=== PATIENT | female | born 1995 | race Caucasian/White ===

== ENCOUNTER 2018-04-26 17:21 | Emergency (ER) | payer MEDICAID ==
[~2018-04-26] VITALS: Ht 154.9 cm; Wt 54.4 kg
[~2018-04-26 17:21] MED LIST: IBUP-1223 PO; OXYC-302 PO; PREN1TAB52 PO; SENN-92 PO
[2018-04-26 18:30] LABS: BASOPHILS # (AUTO) 0.03 x10^3/uL (0-0.1); BASOPHILS % (AUTO) 1 % (0-1); EOSINOPHILS # (AUTO) 0.05 x10^3/uL (0-0.4); EOSINOPHILS % (AUTO) 1 % (1-7); LYMPHOCYTES # (AUTO) 1.97 x10^3/uL (1-3.4); LYMPHOCYTES % (AUTO) 31 % (22-44); MD NO; MEAN CORPUSCULAR HEMOGLOBIN 24.6 pg (27.0-34.8); MEAN CORPUSCULAR HGB CONC 32.6 g/dL (32.4-35.8); MEAN CORPUSCULAR VOLUME 75.5 fL (80-100); MEAN PLATELET VOLUME 7.2 fL (7.4-10.4); MONOCYTES # (AUTO) 0.44 x10^3/uL (0.2-0.8); MONOCYTES % (AUTO) 7 % (2-9); NEUTROPHILS # (AUTO) 3.95 x10^3/uL (1.8-6.8); NEUTROPHILS % (AUTO) 61 % (42-75); PLATELET COUNT 445 x10^3/uL (130-400); RED BLOOD COUNT 4.44 x10^6/uL (3.82-5.3); RED CELL DISTRIBUTION WIDTH 19.8 % (9.6-15.2)
[2018-04-26 18:42] LABS: ALANINE AMINOTRANSFERASE 14 U/L (12-78); ALBUMIN 3.4 g/dL (3.4-5.0); ANION GAP 9 mmol/L (5-15); CALCIUM 8.5 mg/dL (8.5-10.1); CHLORIDE 107 mmol/L (98-107); CREATININE 0.62 mg/dL (0.55-1.02)
[2018-04-26 18:59] LABS: ALKALINE PHOSPHATASE 32 U/L (45-117); BILIRUBIN,TOTAL 0.3 mg/dL (0.2-1.0)
[2018-04-26 19:20] VITALS: BP 94/52
[2018-04-26 19:45] LABS: MICROSCOPIC INDICATED
[2018-04-26 20:03] LABS: CULTURE INDICATED? NO
== END 2018-04-26 20:35 | disposition home or self-care (01) ==
LOC: ED 20:05
DX: O26.891 Other specified pregnancy related conditions, first trimester (principal); R10.2 Pelvic and perineal pain; Z3A.01 Less than 8 weeks gestation of pregnancy; O99.331 Smoking (tobacco) complicating pregnancy, first trimester
CPT/HCPCS: 36415; 76830; 80053; 81001; 84702; 85025; 86901; 99285

== ENCOUNTER 2018-10-01 21:39 | Observation (INO) | payer MEDICAID ==
[~2018-10-01] VITALS: Ht 154.9 cm; Wt 57.7 kg
[2018-10-01 22:15] VITALS: BP 109/55
[2018-10-01 22:22] LABS: AMPHETAMINE SCREEN, URINE Negative (Negative); BARBITURATE SCREEN, URINE Negative (Negative); BENZODIAZEPINE SCREEN, URINE Negative (Negative); CANNABINOID SCREEN, URINE Positive (Negative); COCAINE SCREEN, URINE Negative (Negative); METHADONE SCREEN, URINE Negative (Negative); OPIATE SCREEN, URINE Negative (Negative)
[2018-10-01 22:23] LABS: MICROSCOPIC INDICATED
[2018-10-01] MEDS ORDERED: TERBUTALINE 1 MG/ML, 1ML SQ ONE (23:00)
[2018-10-01] MEDS ORDERED: D5%-LACTATED RINGERS 1,000 ML IV SCH (23:00)
[2018-10-01] MEDS ORDERED: TERBUTALINE 1 MG/ML, 1ML ONE (23:05)
[2018-10-02 00:53] LABS: MICROSCOPIC INDICATED
[2018-10-02] MEDS ORDERED: D5%-LACTATED RINGERS 1,000 ML IV SCH (22:00)
== END 2018-10-02 01:25 | disposition home or self-care (01) ==
LOC: LDOP 21:39 → LDIP 23:30
PROVIDERS: ADMIT Obstetrics & Gynecology; ATTEND Obstetrics & Gynecology
DX: O32.1XX0 Maternal care for breech presentation, not applicable or unspecified (principal); O26.893 Other specified pregnancy related conditions, third trimester; R10.9 Unspecified abdominal pain; Z87.891 Personal history of nicotine dependence; Z3A.28 28 weeks gestation of pregnancy; Z79.899 Other long term (current) drug therapy
CPT/HCPCS: 59025; 76815; 80307; 81001; 87086; 96372; G0378; J3105; J7121; 96360

== ENCOUNTER 2018-11-21 12:10 | Outpatient (CLI) | payer MEDICAID ==
[~2018-11-21] VITALS: Ht 154.9 cm; Wt 59.0 kg
[2018-11-21 13:41] LABS: MICROSCOPIC INDICATED
[2018-11-21 13:45] LABS: AMPHETAMINE SCREEN, URINE Negative (Negative); BARBITURATE SCREEN, URINE Negative (Negative); BENZODIAZEPINE SCREEN, URINE Negative (Negative); CANNABINOID SCREEN, URINE Positive (Negative); COCAINE SCREEN, URINE Negative (Negative); METHADONE SCREEN, URINE Negative (Negative); OPIATE SCREEN, URINE Negative (Negative)
== END 2018-11-21 15:07 | disposition home or self-care (01) ==
LOC: LDOP 12:10
PROVIDERS: ATTEND Obstetrics & Gynecology
DX: O26.893 Other specified pregnancy related conditions, third trimester (principal); R10.9 Unspecified abdominal pain; Z3A.37 37 weeks gestation of pregnancy
CPT/HCPCS: 59025; 80307; 81001; 87086; 99211; G0463

== ENCOUNTER 2018-12-05 05:12 | Inpatient (IN) | payer MEDICAID ==
[~2018-12-05] VITALS: Ht 154.9 cm; Wt 64.5 kg
[2018-12-05] MEDS ORDERED: OXYTOCIN 30U/ 0.9% NaCL 500ML 500 ML IV PRN (05:14)
[2018-12-05] MEDS ORDERED: OXYTOCIN 30U/ 0.9% NaCL 500ML 500 ML IV ONE (05:14)
[2018-12-05] MEDS ORDERED: LIDOCAINE 1%, 20ML ONE (05:16)
[2018-12-05] MEDS ORDERED: NEWBORN KIT ONE (05:16)
[2018-12-05] MEDS ORDERED: MISOPROSTOL 200 MCG TABLET ONE (05:16)
[2018-12-05] MEDS ORDERED: OXYTOCIN 30U/ 0.9% NaCL 500ML 500 ML ONE (05:16)
[2018-12-05] MEDS ORDERED: TERBUTALINE 1 MG/ML, 1ML IVPush PRN (05:30)
[2018-12-05] MEDS ORDERED: ONDANSETRON 2MG/ML, 2ML IVPush PRN (05:30)
[2018-12-05] MEDS ORDERED: ALUMINUM/MAG/SIMETHICONE 30 ML UDC PO PRN (05:30)
[2018-12-05] MEDS ORDERED: FENTANYL PF 100 MCG/2ML IV PRN (05:30)
[2018-12-05 05:54] LABS: BASOPHILS # (AUTO) 0.04 x10^3/uL (0-0.1); BASOPHILS % (AUTO) 0 % (0-1); EOSINOPHILS % (AUTO) 2 % (1-7); LYMPHOCYTES % (AUTO) 23 % (22-44); MD NO; MEAN CORPUSCULAR HEMOGLOBIN 24.4 pg (27.0-34.8); MEAN CORPUSCULAR HGB CONC 32.7 g/dL (32.4-35.8); MEAN CORPUSCULAR VOLUME 74.5 fL (80-100); MEAN PLATELET VOLUME 7.6 fL (7.4-10.4); MONOCYTES # (AUTO) 0.55 x10^3/uL (0.2-0.8); MONOCYTES % (AUTO) 6 % (2-9); NEUTROPHILS % (AUTO) 68 % (42-75); PLATELET COUNT 410 x10^3/uL (130-400); RED BLOOD COUNT 4.49 x10^6/uL (3.82-5.3); RED CELL DISTRIBUTION WIDTH 18.7 % (9.6-15.2)
[2018-12-05] MEDS: LACTATED RINGERS 1,000 ML IV SCH ×3 (06:15→19:26)
[2018-12-05 06:33] VITALS: BP 119/85
[2018-12-05 08:01] LABS: AMPHETAMINE SCREEN, URINE Negative (Negative); BARBITURATE SCREEN, URINE Negative (Negative); BENZODIAZEPINE SCREEN, URINE Negative (Negative); CANNABINOID SCREEN, URINE Positive (Negative); COCAINE SCREEN, URINE Negative (Negative); METHADONE SCREEN, URINE Negative (Negative); OPIATE SCREEN, URINE Negative (Negative)
[2018-12-05] MEDS ORDERED: FENTANYL PF 100 MCG/2ML ONE ×4 (13:22→18:06)
[2018-12-05] MEDS: FENTANYL PF 100 MCG/2ML IVPush PRN ×4 (13:30→18:17)
[2018-12-05] MEDS: D5%-LACTATED RINGERS 1,000 ML IV SCH ×3 (14:13→22:07)
[2018-12-05] MEDS ORDERED: ACETAMINOPHEN 500 MG TABLET ONE (15:15)
[2018-12-05] MEDS ORDERED: ACETAMINOPHEN 500 MG TABLET PO ONE (15:30)
[2018-12-05] MEDS ORDERED: MISOPROSTOL 200 MCG TABLET PR ONE (19:00)
[2018-12-05] MEDS ORDERED: OXYcodone/APAP 5/325MG TABLET ONE (19:08)
[2018-12-05] MEDS: OXYTOCIN 30U/ 0.9% NaCL 500ML 500 ML IV SCH (19:14)
[2018-12-05] MEDS: OXYcodone/APAP 5/325MG TABLET PO PRN ×2 (19:20→20:57)
[2018-12-05] MEDS ORDERED: ONDANSETRON 2MG/ML, 2ML IV PRN (19:30)
[2018-12-05] MEDS ORDERED: MISOPROSTOL 200 MCG TABLET PR PRN (19:30)
[2018-12-05] MEDS ORDERED: ACETAMINOPHEN 325 MG TABLET PO PRN ×2 (19:30)
[2018-12-05] MEDS ORDERED: IBUPROFEN 600 MG TABLET PO PRN (19:30)
[2018-12-05 20:50] VITALS: BP 112/66
[2018-12-06 00:56] VITALS: BP 121/79
[2018-12-06] MEDS: OXYcodone/APAP 5/325MG TABLET PO PRN ×6 (01:02→23:35)
[2018-12-06 02:27] LABS: BASOPHILS # (AUTO) 0.06 x10^3/uL (0-0.1); BASOPHILS % (AUTO) 1 % (0-1); EOSINOPHILS # (AUTO) 0.05 x10^3/uL (0-0.4); EOSINOPHILS % (AUTO) 1 % (1-7); LYMPHOCYTES # (AUTO) 1.44 x10^3/uL (1-3.4); LYMPHOCYTES % (AUTO) 14 % (22-44); MD NO; MEAN CORPUSCULAR HEMOGLOBIN 24.4 pg (27.0-34.8); MEAN CORPUSCULAR HGB CONC 32.4 g/dL (32.4-35.8); MEAN CORPUSCULAR VOLUME 75.3 fL (80-100); MEAN PLATELET VOLUME 7.7 fL (7.4-10.4); MONOCYTES # (AUTO) 0.48 x10^3/uL (0.2-0.8); MONOCYTES % (AUTO) 5 % (2-9); NEUTROPHILS # (AUTO) 8.22 x10^3/uL (1.8-6.8); NEUTROPHILS % (AUTO) 80 % (42-75); PLATELET COUNT 360 x10^3/uL (130-400); RED BLOOD COUNT 3.87 x10^6/uL (3.82-5.3); RED CELL DISTRIBUTION WIDTH 18.5 % (9.6-15.2)
[2018-12-06] MEDS: OXYTOCIN 30U/ 0.9% NaCL 500ML 500 ML IV SCH (05:14)
[2018-12-06] MEDS: D5%-LACTATED RINGERS 1,000 ML IV SCH ×2 (05:15→14:13)
[2018-12-06] MEDS: LACTATED RINGERS 1,000 ML IV SCH ×2 (05:15→14:13)
[2018-12-06 06:03] VITALS: BP 117/76
[2018-12-06 09:00] VITALS: BP 116/77
[2018-12-06] MEDS: PRENATAL VIT/IRON/FA 1 EACH TABLET PO SCH (10:21)
[2018-12-06 12:16] VITALS: BP 113/78
[2018-12-06 16:00] VITALS: BP 116/72
[2018-12-06] MEDS ORDERED: MAGNESIUM HYDROXIDE 8%, 30ML UDC PO PRN (18:00)
[2018-12-06] MEDS ORDERED: SIMETHICONE 80 MG CHEW TAB PO PRN (18:00)
[2018-12-06 21:00] VITALS: BP 108/69
[2018-12-07] MEDS: OXYcodone/APAP 5/325MG TABLET PO PRN ×3 (03:44→12:17)
[2018-12-07 07:26] VITALS: BP_SYST 116; BP_SYST 120; BP_DIAS 69; BP_DIAS 70
[2018-12-07] MEDS: PRENATAL VIT/IRON/FA 1 EACH TABLET PO SCH (07:51)
[2018-12-07] MEDS ORDERED: SENN-52 PO (13:49)
[2018-12-07] MEDS ORDERED: HYDR-3240 PO (13:51)
[2018-12-07] MEDS ORDERED: IBUP-1222 PO (13:52)
== END 2018-12-07 14:30 | disposition home or self-care (01) | DRG 807 ==
LOC: LDIP 05:12 → 2NW 20:15
PROVIDERS: ADMIT Obstetrics & Gynecology; ATTEND Obstetrics & Gynecology
PROC: 10E0XZZ Delivery of Products of Conception, External Approach (ICD-10-PCS; principal; 2018-12-05)
PROC: 10907ZC Drainage of Amniotic Fluid, Therapeutic from Products of Conception, Via Natural or Artificial Opening (ICD-10-PCS; 2018-12-05)
PROC: 3E033VJ Introduction of Other Hormone into Peripheral Vein, Percutaneous Approach (ICD-10-PCS; 2018-12-05)
DX: O80 Encounter for full-term uncomplicated delivery (principal); Z37.0 Single live birth; Z3A.39 39 weeks gestation of pregnancy
CPT/HCPCS: 36415; J7121; 76856; 80307; 82803; 85025; 86850; 86900; G0378; J3010; J2590; J7120

== ENCOUNTER 2019-07-16 21:52 | Emergency (ER) | payer MEDICAID ==
[~2019-07-16] VITALS: Ht 172.7 cm; Wt 52.5 kg
[~2019-07-16 21:52] MED LIST changes: +HYDR-3240 PO; +IBUP-1222 PO; +SENN-52 PO
[2019-07-16 21:58] VITALS: BP 144/76
[2019-07-16 22:57] LABS: BASOPHILS # (AUTO) 0.06 x10^3/uL (0-0.1); BASOPHILS % (AUTO) 1 % (0-1); EOSINOPHILS # (AUTO) 0.17 x10^3/uL (0-0.4); EOSINOPHILS % (AUTO) 2 % (1-7); LYMPHOCYTES # (AUTO) 2.76 x10^3/uL (1-3.4); LYMPHOCYTES % (AUTO) 29 % (22-44); MD NO; MEAN CORPUSCULAR HGB CONC 32.1 g/dL (32.4-35.8); MEAN PLATELET VOLUME 7.2 fL (7.4-10.4); MONOCYTES # (AUTO) 0.44 x10^3/uL (0.2-0.8); MONOCYTES % (AUTO) 5 % (2-9); NEUTROPHILS # (AUTO) 5.99 x10^3/uL (1.8-6.8); NEUTROPHILS % (AUTO) 64 % (42-75); PLATELET COUNT 527 x10^3/uL (130-400); RED BLOOD COUNT 4.63 x10^6/uL (3.82-5.3); RED CELL DISTRIBUTION WIDTH 15.9 % (9.6-15.2)
[2019-07-16] MEDS ORDERED: HYDROmorphone 1 MG/ML, 1ML INJ ONE (22:58)
[2019-07-16] MEDS ORDERED: HYDROmorphone 1 MG/ML, 1ML INJ IM ONE (23:00)
[2019-07-16 23:09] LABS: ALANINE AMINOTRANSFERASE 19 U/L (12-78); ALBUMIN 4.2 g/dL (3.4-5.0); ANION GAP 10 mmol/L (5-15); CALCIUM 9.1 mg/dL (8.5-10.1); CHLORIDE 107 mmol/L (98-107); CREATININE 0.96 mg/dL (0.55-1.02)
[2019-07-16 23:14] LABS: ALKALINE PHOSPHATASE 38 U/L (45-117); BILIRUBIN,TOTAL 0.3 mg/dL (0.2-1.0); TOTAL PROTEIN 7.5 g/dL (6.4-8.2)
[2019-07-16 23:22] LABS: CULTURE INDICATED? YES; HCG UR SG 1.033 (1.003-1.030); MICROSCOPIC INDICATED
[2019-07-16] MEDS ORDERED: KETOROLAC 30 MG/1 ML ONE (23:51)
[2019-07-17] MEDS ORDERED: KETOROLAC 30 MG/1 ML IM ONE
[2019-07-17] MEDS ORDERED: HYDROcodone/APAP 5/325 TABLET ONE (00:45)
[2019-07-17] MEDS ORDERED: HYDROcodone/APAP 5/325 TABLET PO ONE (01:00)
== END 2019-07-17 01:11 | disposition home or self-care (01) ==
LOC: ED 07-17 00:25
DX: N23 Unspecified renal colic (principal)
CPT/HCPCS: 36415; 74176; 76830; 80053; 81001; 81025; 84702; 85025; 87086; 96372; 99284; J1170; J1885